=== PATIENT | male | born 1965 ===

== ENCOUNTER → 2018-07-23 21:06 | Outpatient (ROUT) | payer BC, SELFPAY ==
[2018-07-23 22:30] LABS: Cholesterol 133 mg/dL (140-199); HDL Cholesterol 49 mg/dL (40-60); LDL Cholesterol Calculated 73 mg/dL (<100); Triglycerides 56 mg/dL (35-150)
[2018-07-23 23:17] LABS: Hemoglobin A1C% w Est Avg Glu 5.5 % (4.0-6.0)
== END ==
PROVIDERS: Visit Provider Family Medicine
DX: I10 Essential (primary) hypertension (principal); E78.41 Elevated Lipoprotein(a)
CPT/HCPCS: 36415; 80061; 83036